=== PATIENT | male | born 1955 | race African-American/Black ===

== ENCOUNTER 2020-11-01 13:43 | Emergency (ER) | payer SELFPAY ==
[~2020-11-01 13:43] MED LIST: Iopamidol-370 76% 500 ML 1 ML ONE
[2020-11-01] MEDS ORDERED: Ketorolac Tromethamine 30 MG/ML VIAL ONE (14:22)
[2020-11-01 14:40] LABS: #Lymphocytes 1.1 thou/uL (1.20-3.40); #Monocytes 0.3 thou/uL (0.11-0.59); %Basophils 0.3 % (0.0-1.0); %Eosinophils 0.1 % (0.0-10.0); %Lymphocytes 19.4 % (21.0-51.0); %Monocytes 5.3 % (0.0-10.0); %Neutrophils 74.9 % (42.0-75.0); Mean Corpuscular Hemoglobin 28.6 pg (27.0-31.0); Mean Corpuscular Volume 89.4 fL (78.0-98.0); Mean Platelet Volume 8.2 fL (7.4-10.4); Platelet Count 199 thou/uL (130-400); Red Blood Cell (RBC) Count 4.89 mill/uL (4.70-6.10); White Blood Cell (WBC) Count 5.4 thou/uL (4.8-10.8)
[2020-11-01 14:47] LABS: Prothrombin Time 13.2 sec (12.0-14.7)
[2020-11-01 14:48] LABS: D-Dimer Test 0.94 *mcg/mL (0.27-0.43)
[2020-11-01 15:06] LABS: ALT (SGPT) 26 U/L (8-55); AST (SGOT) 27 U/L (5-34); Albumin 3.7 g/dL (3.4-4.8); Alkaline Phosphatase 37 U/L (40-110); Anion Gap 17 mmol/L (10-20); BUN (Urea Nitrogen) 12 mg/dL (8.4-25.7); Bilirubin, Total 0.5 mg/dL (0.2-1.2); Calc. Creatinine Clearance 0 mL/min (70-130); Carbon Dioxide 23 mmol/L (23-31); Chloride 103 mmol/L (98-107); Globulin 3.5 g/dL (2.4-3.5); Glucose 106 mg/dL (80-115); Potassium 4.3 mmol/L (3.5-5.1); Protein, Total 7.2 g/dL (5.8-8.1); Sodium 139 mmol/L (136-145)
--- NOTE | 2020-11-01 15:50 | CT ---
CTA Angio Chest W WO Con 11/01/2020 3:28 PM Indication: Chest pain and hypertension with fever cough and shortness of breath history of negative Covid testing Technique: Multiple CTA images were obtained of the thorax with IV contrast. 3-D rendering: MIP erwin nstructed images were created and reviewed. Comparison: No relevant prior studies available. Findings: Pulmonary arteries: Respiratory motion artifact limits evaluation of the segmental pulmonary arteria l branches, particularly within the lower lobes. No definite central pulmonary embolus is evident. Heart and Aorta: Normal appearing. Mediastinum:Normal appearing. No enlarged lymph nodes. Lungs:There are bilateral perihilar interstitial and airspace opacities suspicious for bilateral pneu monia. Pleural space: Clear. Upper Abdomen: There are numerous cystlike abnormalities involving the visualized superior aspects o f the kidneys. Smaller hypodensities are also present within the liver, incompletely characterized but may also reflect additional smaller cysts. Osseous Structures: There is scattered degenerative and osteoarthritic change present. Soft tissues:No abnormality. Other findings:None. Impression: 1. No definite central pulmonary embolus demonstrated. Limitations to the exam as above. 2. Bilateral perihilar interstitial and groundglass airspace opacity suspicious for an atypical pneum onia. Recommend correlation with repeat Covid testing. 3. Incompletely characterized hypodense lesions within the liver and cysts may reflect multiple cysts related to adult polycystic kidney disease. Follow-up nonemergent CT of the abdomen utilizing renal mass protocol may be helpful for further characterization.
[2020-11-01 22:14] LABS: SARS-CoV-2 MS2 Positive; SARS-CoV-2 N Gene Positive; SARS-CoV-2 S Gene Positive; SARS-CoV-2 by NAA DETECTED (NotDetected); SARS-CoV-2 orf1ab Positive
== END 2020-11-01 16:25 | disposition home or self-care (01) ==
LOC: ERS 13:43
DX: U07.1 COVID-19 (principal); I10 Essential (primary) hypertension; Z79.899 Other long term (current) drug therapy; Z79.82 Long term (current) use of aspirin
CPT/HCPCS: 36415; 71275; 80053; 83605; 84484; 85025; 85379; 85610; 85730; 87040; 87635; 87804; 93005; 94760; 96374; J1885; Q9967; U0003

== ENCOUNTER 2020-12-24 14:10 | Emergency (ER) | payer SELFPAY ==
[2020-12-24] MEDS ORDERED: Ketorolac Tromethamine 30 MG/ML VIAL ONE (14:48)
--- NOTE | 2020-12-24 14:54 | RAD ---
EXAM: Single view of the chest HISTORY: Fall with right shoulder pain COMPARISON: None FINDINGS: Single view of the chest shows a normal sized cardiomediastinal silhouette. There is no stefani dence of consolidation, mass, or pleural effusion. No acute osseous abnormality. IMPRESSION: No evidence of acute cardiopulmonary disease
--- NOTE | 2020-12-24 14:54 | RAD ---
XR Shoulder Rt 3 View STANDARD HISTORY: Right shoulder pain COMPARISON: None. FINDINGS: There are moderate arthritic changes of the glenohumeral joint space. There is also subacro mial spur formation. AC joint appears unremarkable. IMPRESSION: Arthritic changes of the shoulder.
--- NOTE | 2020-12-28 15:54 | EKG ---
Test Reason : Blood Pressure : / mmHG Vent. Rate : 087 BPM Atrial Rate : 087 BPM P-R Int : 270 ms QRS Dur : 122 ms QT Int : 412 ms P-R-T Axes : 070 -02 -13 degrees QTc Int : 495 ms Sinus rhythm with 1st degree A-V block with Premature supraventricular complexes Right bundle branch block Inferior infarct , age undetermined Abnormal ECG Confirmed by NEAL DARBY ([id number]), photo editor JEFERSON WHITE ([id number]) on 12/28/2020 3:53:44 PM Referred By: Confirmed By:NEAL DARBY
== END 2020-12-24 16:03 | disposition home or self-care (01) ==
LOC: ERS 14:10
DX: S40.011A Contusion of right shoulder, initial encounter (principal); S20.221A Contusion of right back wall of thorax, initial encounter; I10 Essential (primary) hypertension; E78.5 Hyperlipidemia, unspecified; W00.0XXA Fall on same level due to ice and snow, initial encounter
CPT/HCPCS: 71045; 93005; 96374; J1885

== ENCOUNTER 2022-08-23 11:23 | Inpatient (IN) | payer MEDICARE, SELFPAY ==
[2022-08-23] MEDS ORDERED: Diltiazem 125 MG/25 ML ONE ×2 (11:48→12:11)
[2022-08-23 12:20] LABS: #Basophils 0.1 thou/uL (0.0-0.2); #Eosinphils 0.1 thou/uL (0.0-0.7); #Lymphocytes 2.4 thou/uL (1.20-3.40); #Monocytes 0.5 thou/uL (0.11-0.59); #Neutrophils 1.9 thou/uL (1.40-6.50); %Basophils 1.3 % (0.0-1.0); %Eosinophils 2.4 % (0.0-10.0); %Lymphocytes 48.3 % (21.0-51.0); %Monocytes 9.5 % (0.0-10.0); %Neutrophils 38.6 % (42.0-75.0); Hemoglobin 13.1 g/dL (14.0-18.0); Mean Corpuscular HGB CONC 32.8 g/dL (32.0-36.0); Mean Corpuscular Hemoglobin 30.2 pg (27.0-31.0); Mean Corpuscular Volume 92.2 fL (78.0-98.0); Mean Platelet Volume 7.8 fL (7.4-10.4); Platelet Count 282 thou/uL (130-400); RBC Distribution Width 12.9 % (11.5-14.5); Red Blood Cell (RBC) Count 4.35 mill/uL (4.70-6.10); White Blood Cell (WBC) Count 4.9 thou/uL (4.8-10.8)
[2022-08-23 12:31] LABS: ALT (SGPT) 22 U/L (8-55); AST (SGOT) 19 U/L (5-34); Albumin 3.6 g/dL (3.4-4.8); Alkaline Phosphatase 42 U/L (40-110); Anion Gap 17 mmol/L (10-20); BUN (Urea Nitrogen) 20 mg/dL (8.4-25.7); Bilirubin, Total 0.5 mg/dL (0.2-1.2); CK (CPK) 760 U/L (30-200); Calc. Creatinine Clearance 0 mL/min (70-130); Calcium 8.6 mg/dL (7.8-10.44); Carbon Dioxide 19 mmol/L (23-31); Chloride 108 mmol/L (98-107); Estimated GFR 37; Globulin 3.2 g/dL (2.4-3.5); Glucose 136 mg/dL (80-115); Lipase 48 U/L (8-78); Magnesium 1.8 mg/dL (1.6-2.6); Potassium 4.1 mmol/L (3.5-5.1); Protein, Total 6.8 g/dL (5.8-8.1); Sodium 140 mmol/L (136-145)
[2022-08-23] MEDS ORDERED: Ondansetron PF 4 MG/2 ML Vial IVP PRN (14:03)
[2022-08-23] MEDS ORDERED: Ondansetron ODT 4 MG TAB PO PRN (14:03)
[2022-08-23 15:27] VITALS: BMI 32.9
[2022-08-23 16:03] LABS: Troponin I 0.021 ng/mL (< 0.028)
[2022-08-23] MEDS: Sodium Chloride 0.9% 1,000 ML IV SCH ×2 (16:07→22:20)
[2022-08-23 16:56] LABS: SARS-CoV-2 NAA Rapid Test Not Detected (NotDetected)
[2022-08-23 18:26] LABS: Troponin I 0.023 ng/mL (< 0.028)
[2022-08-23] MEDS ORDERED: Electrolyte Replacement Protocol 1 EACH FS SCH (19:45)
[2022-08-23] MEDS: Famotidine 20 MG TAB PO SCH (20:30)
[2022-08-23] MEDS ORDERED: Magnesium 2 GM/50 ML(in water) 2 GM in Premix Bag 1 BAG IVPB SCH (20:30)
[2022-08-23] MEDS: Enoxaparin Sodium 80 MG/0.8 ML SYRINGE SC SCH (20:31)
[2022-08-23] MEDS ORDERED: Enoxaparin Sodium 40 MG/0.4 ML SYRINGE SC SCH (21:00)
[2022-08-24] MEDS: Sodium Chloride 0.9% 1,000 ML IV SCH ×2 (01:11→06:35)
[2022-08-24 05:00] LABS: #Eosinphils 0.1 thou/uL (0.0-0.7); #Lymphocytes 1.6 thou/uL (1.20-3.40); #Monocytes 0.4 thou/uL (0.11-0.59); #Neutrophils 1.5 thou/uL (1.40-6.50); %Basophils 1.2 % (0.0-1.0); %Eosinophils 2.5 % (0.0-10.0); %Lymphocytes 44.3 % (21.0-51.0); %Monocytes 10.9 % (0.0-10.0); Hemoglobin 11.5 g/dL (14.0-18.0); Mean Corpuscular HGB CONC 31.2 g/dL (32.0-36.0); Mean Corpuscular Hemoglobin 28.8 pg (27.0-31.0); Mean Corpuscular Volume 92.5 fL (78.0-98.0); Mean Platelet Volume 7.6 fL (7.4-10.4); Platelet Count 208 thou/uL (130-400); RBC Distribution Width 12.9 % (11.5-14.5); Red Blood Cell (RBC) Count 3.98 mill/uL (4.70-6.10); White Blood Cell (WBC) Count 3.7 thou/uL (4.8-10.8)
[2022-08-24 05:11] LABS: Anion Gap 7 mmol/L (10-20); BUN (Urea Nitrogen) 13 mg/dL (8.4-25.7); Calc. Creatinine Clearance 81 mL/min (70-130); Calcium 8.1 mg/dL (7.8-10.44); Carbon Dioxide 27 mmol/L (23-31); Chloride 112 mmol/L (98-107); Estimated GFR 63; Glucose 76 mg/dL (80-115); Potassium 4.2 mmol/L (3.5-5.1); Sodium 142 mmol/L (136-145)
[2022-08-24] MEDS: Enoxaparin Sodium 80 MG/0.8 ML SYRINGE SC SCH ×2 (09:32→20:43)
[2022-08-24] MEDS: Famotidine 20 MG TAB PO SCH ×2 (09:33→20:45)
[2022-08-25 05:00] LABS: Anion Gap 10 mmol/L (10-20); BUN (Urea Nitrogen) 10 mg/dL (8.4-25.7); Carbon Dioxide 25 mmol/L (23-31); Chloride 107 mmol/L (98-107); Sodium 138 mmol/L (136-145)
[2022-08-25 05:01] LABS: Calc. Creatinine Clearance 97 mL/min (70-130); Calcium 8.7 mg/dL (7.8-10.44); Cardiac Risk 4.4 (Less than 4.5); Cholesterol 202 mg/dl (< 200 Desired); Estimated GFR 77; Glucose 88 mg/dL (80-115); HDL Cholesterol 46 mg/dL (>60 Neg Risk); LDL Cholesterol, Calculated 144 mg/dL; Triglycerides 58 mg/dL (Less than 150)
[2022-08-25 05:25] LABS: Band 6 % (5-11); Hypochromia SLIGHT = 6-15 cells (100X) (0-5/hpf); Lymphocytes 18 % (21-51); MDiff Complete? YES; Mean Corpuscular HGB CONC 30.3 g/dL (32.0-36.0); Mean Corpuscular Hemoglobin 28.2 pg (27.0-31.0); Mean Corpuscular Volume 92.9 fL (78.0-98.0); Mean Platelet Volume 7.6 fL (7.4-10.4); Monocytes 4 % (0-10); Neutrophil 66 % (42-75); Platelet Count 222 thou/uL (130-400); Platelet Morphology Comment Appears Adequate; RBC Distribution Width 12.7 % (11.5-14.5); Reactive Lymphocytes 6 % (0-10); Red Blood Cell (RBC) Count 4.26 mill/uL (4.70-6.10); White Blood Cell (WBC) Count 3.9 thou/uL (4.8-10.8)
[2022-08-25] MEDS: Enoxaparin Sodium 80 MG/0.8 ML SYRINGE SC SCH (08:30)
[2022-08-25] MEDS: Famotidine 20 MG TAB PO SCH (08:30)
[2022-08-25 15:57] VITALS: BP 146/90; TEMP 98
[2022-08-25] MEDS ORDERED: Apixaban 5 MG TAB PO SCH (21:00)
== END 2022-08-25 16:55 | disposition home or self-care (01) | DRG 309 ==
LOC: ERS 11:23 → 2SW 13:38 → OBSVTOIN 08-25 15:57
PROVIDERS: ADMIT Hospitalist; ATTEND Internal Medicine
DX: I48.91 Unspecified atrial fibrillation (principal); M62.82 Rhabdomyolysis; N17.9 Acute kidney failure, unspecified; D64.9 Anemia, unspecified; R73.9 Hyperglycemia, unspecified; I10 Essential (primary) hypertension; Z88.6 Allergy status to analgesic agent; Z88.5 Allergy status to narcotic agent; Z79.82 Long term (current) use of aspirin; Z79.899 Other long term (current) drug therapy; E78.5 Hyperlipidemia, unspecified; I48.92 Unspecified atrial flutter; I44.0 Atrioventricular block, first degree; I45.2 Bifascicular block; Z82.49 Family history of ischemic heart disease and other diseases of the circulatory system; Z20.822 Contact with and (suspected) exposure to COVID-19
CPT/HCPCS: 36415; 71045; 80048; 80053; 80061; 82550; 83690; 83735; 83880; 84443; 84484; 85025; 93005; 93306; 96365; 96367; 96372; 96376; G0378; J1650; J3475; J7050; U0002

== ENCOUNTER 2022-09-15 23:30 | Inpatient (IN) | payer MEDICARE ==
[2022-09-16] MEDS ORDERED: Metoprolol Tartrate 5 MG/5 ML VIAL ONE ×3 (00:03→01:06)
[2022-09-16 00:05] LABS: #Basophils 0.1 thou/uL (0.0-0.2); #Lymphocytes 1.1 thou/uL (1.20-3.40); #Monocytes 0.7 thou/uL (0.11-0.59); #Neutrophils 4.7 thou/uL (1.40-6.50); %Basophils 0.8 % (0.0-1.0); %Lymphocytes 17.3 % (21.0-51.0); %Monocytes 9.9 % (0.0-10.0); Hemoglobin 14.6 g/dL (14.0-18.0); Mean Corpuscular HGB CONC 32.1 g/dL (32.0-36.0); Mean Corpuscular Hemoglobin 28.8 pg (27.0-31.0); Mean Corpuscular Volume 89.7 fl (78.0-98.0); Mean Platelet Volume 8.4 fL (7.4-10.4); Platelet Count 187 10x3/uL (130-400); Red Blood Cell (RBC) Count 5.05 mill/uL (4.70-6.10); White Blood Cell (WBC) Count 6.5 10x3/uL (4.8-10.8)
[2022-09-16 00:24] LABS: ALT (SGPT) 34 U/L (8-55); AST (SGOT) 35 U/L (5-34); Albumin 3.4 g/dL (3.4-4.8); Alkaline Phosphatase 35 U/L (40-110); Anion Gap 16 mmol/L (10-20); BUN (Urea Nitrogen) 50 mg/dL (8.4-25.7); Calc. Creatinine Clearance 0 mL/min (70-130); Calcium 8.6 mg/dL (7.8-10.44); Carbon Dioxide 19 mmol/L (23-31); Chloride 99 mmol/L (98-107); Estimated GFR 24; Globulin 3.9 g/dL (2.4-3.5); Glucose 124 mg/dL (80-115); Potassium 3.8 mmol/L (3.5-5.1); Protein, Total 7.3 g/dL (5.8-8.1); Sodium 130 mmol/L (136-145)
[2022-09-16 00:47] LABS: CKMB 1.4 ng/mL (0-6.6)
[2022-09-16] MEDS ORDERED: Diltiazem 125 MG/25 ML ONE (01:26)
[2022-09-16] MEDS ORDERED: Azithromycin 250 MG TAB ONE (02:17)
[2022-09-16] MEDS ORDERED: cefTRIAXone\\ROCEPHIN 1 GM VIAL ONE (02:17)
[2022-09-16 02:20] LABS: SARS-CoV-2 NAA Rapid Test Not Detected (NotDetected)
[2022-09-16] MEDS ORDERED: Albuterol Sulfate 2.5 mg/0.5 ml Neb ONE (02:40)
[2022-09-16] MEDS ORDERED: Acetaminophen 325 MG TAB PO PRN (06:00)
[2022-09-16] MEDS ORDERED: Acetaminophen 650 MG Suppository PR PRN (06:19)
[2022-09-16] MEDS ORDERED: Ondansetron PF 4 MG/2 ML Vial IVP PRN (06:19)
[2022-09-16] MEDS ORDERED: Ondansetron ODT 4 MG TAB PO PRN (06:19)
[2022-09-16] MEDS ORDERED: Furosemide 40 MG/4 ML VIAL SLOW IVP SCH (06:30)
[2022-09-16 06:35] VITALS: BMI 31.7
[2022-09-16 07:15] LABS: Magnesium 2.1 mg/dL (1.6-2.6)
[2022-09-16 07:21] LABS: Troponin I 0.017 ng/mL (< 0.028)
[2022-09-16 08:03] LABS: Anion Gap 15 mmol/L (10-20); BUN (Urea Nitrogen) 46 mg/dL (8.4-25.7); Calc. Creatinine Clearance 42 mL/min (70-130); Calcium 8.4 mg/dL (7.8-10.44); Carbon Dioxide 18 mmol/L (23-31); Chloride 104 mmol/L (98-107); Estimated GFR 29; Glucose 116 mg/dL (80-115); Sodium 133 mmol/L (136-145)
[2022-09-16] MEDS: Lisinopril 10 MG TAB PO SCH (08:46)
[2022-09-16] MEDS: Apixaban 5 MG TAB PO SCH ×2 (08:46→21:03)
[2022-09-16] MEDS: Aspirin 81 mg Enteric Coated Tablet PO SCH (08:47)
[2022-09-16] MEDS ORDERED: Aspirin Chewable 81 MG TAB PO SCH (09:00)
[2022-09-16] MEDS ORDERED: Doxycycline 100 MG CAP PO SCH (09:30)
[2022-09-16] MEDS ORDERED: Loperamide HCl 2 MG CAP PO PRN (13:48)
[2022-09-16] MEDS: Diltiazem HCl 125 MG, Admixture Fee 1 EACH in Sodium Chloride 0.9% 100 ML IVPB SCH (15:25)
[2022-09-16] MEDS: Doxycycline 100 MG CAP PO SCH (21:03)
[2022-09-17] MEDS: Diltiazem HCl 125 MG, Admixture Fee 1 EACH in Sodium Chloride 0.9% 100 ML IVPB SCH ×2 (03:22→21:04)
[2022-09-17 04:33] LABS: Anion Gap 12 mmol/L (10-20); BUN (Urea Nitrogen) 31 mg/dL (8.4-25.7); Calc. Creatinine Clearance 69 mL/min (70-130); Calcium 8.4 mg/dL (7.8-10.44); Carbon Dioxide 23 mmol/L (23-31); Chloride 103 mmol/L (98-107); Estimated GFR 54; Glucose 96 mg/dL (80-115); Potassium 3.6 mmol/L (3.5-5.1); Sodium 134 mmol/L (136-145)
[2022-09-17] MEDS: Apixaban 5 MG TAB PO SCH ×2 (08:20→20:59)
[2022-09-17] MEDS: Aspirin 81 mg Enteric Coated Tablet PO SCH (08:20)
[2022-09-17] MEDS: Lisinopril 10 MG TAB PO SCH (08:20)
[2022-09-17] MEDS: Doxycycline 100 MG CAP PO SCH ×2 (08:20→20:58)
[2022-09-17] MEDS ORDERED: guaiFENesin ER 600 MG TAB PO SCH (09:45)
[2022-09-17] MEDS ORDERED: Ipratropium Bromide 2.5 ml Neb NEB SCH (10:00)
[2022-09-17] MEDS: Ipratropium Bromide 2.5 ml Neb NEB SCH ×2 (12:03→19:09)
[2022-09-17] MEDS: guaiFENesin ER 600 MG TAB PO SCH (20:58)
[2022-09-18] MEDS: Ipratropium Bromide 2.5 ml Neb NEB SCH ×3 (00:50→12:42)
[2022-09-18 04:15] LABS: Anion Gap 12 mmol/L (10-20); BUN (Urea Nitrogen) 24 mg/dL (8.4-25.7); Calc. Creatinine Clearance 72 mL/min (70-130); Calcium 8.4 mg/dL (7.8-10.44); Carbon Dioxide 25 mmol/L (23-31); Chloride 102 mmol/L (98-107); Estimated GFR 55; Glucose 95 mg/dL (80-115); Potassium 3.8 mmol/L (3.5-5.1); Sodium 135 mmol/L (136-145)
[2022-09-18] MEDS: Aspirin 81 mg Enteric Coated Tablet PO SCH (07:44)
[2022-09-18] MEDS: Apixaban 5 MG TAB PO SCH (07:44)
[2022-09-18] MEDS: guaiFENesin ER 600 MG TAB PO SCH (07:44)
[2022-09-18] MEDS: Doxycycline 100 MG CAP PO SCH (07:44)
[2022-09-18] MEDS: Lisinopril 10 MG TAB PO SCH (07:45)
[2022-09-18 13:23] VITALS: BP 109/83
[2022-09-18 16:10] VITALS: TEMP 97.2
== END 2022-09-18 17:45 | disposition home or self-care (01) | DRG 291 ==
LOC: ERS 23:30 → IMCU/EMU 09-16 02:03
PROVIDERS: ADMIT Internal Medicine; ATTEND Internal Medicine
DX: I11.0 Hypertensive heart disease with heart failure (principal); I50.33 Acute on chronic diastolic (congestive) heart failure; J96.00 Acute respiratory failure, unspecified whether with hypoxia or hypercapnia; N17.9 Acute kidney failure, unspecified; Z20.822 Contact with and (suspected) exposure to COVID-19; J20.9 Acute bronchitis, unspecified; I48.91 Unspecified atrial fibrillation; E78.5 Hyperlipidemia, unspecified; G50.0 Trigeminal neuralgia; R77.8 Other specified abnormalities of plasma proteins; Z79.899 Other long term (current) drug therapy; Z79.82 Long term (current) use of aspirin; Z79.01 Long term (current) use of anticoagulants
CPT/HCPCS: 36415; 71045; 80048; 80053; 82553; 83605; 83735; 83880; 84484; 85025; 85379; 87040; 93005; 93798; 94640; 96361; 96365; 96374; 96375; 96376; J0696; J1940; J3490; J7611; U0002

== ENCOUNTER 2024-05-08 05:35 | Day surgery (SDC) | payer MEDICARE ==
[2024-05-03 09:13] VITALS: BMI 31.8
== END 2024-05-08 16:55 | disposition home or self-care (01) ==
LOC: SDC 05:35
PROVIDERS: ATTEND Internal Medicine Cardiovascular Disease
PROC: 4A023FZ Measurement of Cardiac Rhythm, Percutaneous Approach (ICD-10-PCS; principal; 2024-05-08)
PROC: 02583ZZ Destruction of Conduction Mechanism, Percutaneous Approach (ICD-10-PCS; 2024-05-08)
DX: I47.10 Supraventricular tachycardia, unspecified (principal); I48.0 Paroxysmal atrial fibrillation; I10 Essential (primary) hypertension; E78.5 Hyperlipidemia, unspecified; Z79.01 Long term (current) use of anticoagulants; Z88.5 Allergy status to narcotic agent
CPT/HCPCS: 80048; 85027; 85347 ×2; 85610; 85730; 93005; 93622; 93623; 93656; 93657; C1732 ×3; C1759; C1760; C1894 ×2; J0171; J1100; J1644 ×2; J2371; J2405; J2704; J2720; J3010

== ENCOUNTER 2025-10-30 08:11 | Outpatient (CLI) | payer OTHER | END 2025-10-30 08:12 | disposition home or self-care (01) | LOC: CT 08:11 | PROVIDERS: ATTEND Urology | DX: N28.1 Cyst of kidney, acquired (principal); R97.20 Elevated prostate specific antigen [PSA]; N26.1 Atrophy of kidney (terminal); R31.29 Other microscopic hematuria; I48.0 Paroxysmal atrial fibrillation; R93.2 Abnormal findings on diagnostic imaging of liver and biliary tract; K66.8 Other specified disorders of peritoneum; Z79.01 Long term (current) use of anticoagulants | CPT/HCPCS: 74178 ==